=== PATIENT | male | born 1985 | race Caucasian/White ===

== ENCOUNTER 2025-01-17 19:02 | Emergency (ER) | payer OTHER ==
[~2025-01-17] VITALS: Ht 175.3 cm; Wt 90.0 kg
[2025-01-17 19:16] VITALS: BP 145/72; PULSE 105; RESP 18; TEMP 98.3; O2SAT 95
== END 2025-01-17 20:52 | disposition left against medical advice (07) ==
LOC: EMS 19:02
DX: R53.1 Weakness (principal); Z53.21 Procedure and treatment not carried out due to patient leaving prior to being seen by health care provider